=== PATIENT | male | born 2000 | race Caucasian/White ===

== ENCOUNTER 2024-05-15 05:35 | Emergency (ER) | payer BC, OTHER ==
[~2024-05-15] VITALS: Ht 177.8 cm; Wt 72.1 kg
[2024-05-15 05:46] VITALS: TEMP 98.1
[2024-05-15] MEDS ORDERED: TDAP [DIPH/PERTUSSIS/TET] 0.5 ML VIAL IM ONE (06:52)
[2024-05-15] MEDS: TDAP [DIPH/PERTUSSIS/TET] 0.5 ML VIAL IM ONE (06:54)
[2024-05-15 08:45] VITALS: BP 128/72; O2SAT 98
== END 2024-05-15 08:45 ==
LOC: ER 05:44
DX: R40.0 Somnolence (principal); R51.9 Headache, unspecified; M54.2 Cervicalgia; V43.52XA Car driver injured in collision with other type car in traffic accident, initial encounter; Y93.89 Activity, other specified; Y92.413 State road as the place of occurrence of the external cause; Y99.8 Other external cause status
CPT/HCPCS: 70450-TC; 72125-TC; 82962-TC; 90715